=== PATIENT | female | born 1985 | race Caucasian/White ===

== ENCOUNTER → 2017-06-09 | Outpatient (CLI) | payer BC ==
[~2017-06-09] MED LIST: CLARITIN10 MG PO; MOTRIN800 MG PO; PERCOCET 5-3251 EACH PO; PRENATAL 1+1)(P1 TAB PO
== END | disposition disaster alternative care site (69) ==
LOC: GLAB 10:20
DX: Z32.01 Encounter for pregnancy test, result positive (principal)

== ENCOUNTER → 2017-06-11 | Outpatient (CLI) | payer BC | END | disposition disaster alternative care site (69) | LOC: GLAB 10:00 | DX: Z32.01 Encounter for pregnancy test, result positive (principal) ==

== ENCOUNTER → 2017-06-13 | Day surgery (SDC) | payer BC ==
[~2017-06-13] VITALS: Ht 160 cm; Wt 54.2 kg
--- NOTE | ~2017-06-13 | OR ---
PATIENT'S NAME: HAILE RODRIGUEZ [facility] AGE: 32 Y [address] ROOM: [place] [address] LOCATION: [facility] – [place] ADMIT DATE: 06/13/2017 OR/Procedure Report DISCHARGE DATE: FAMILY PHYSICIAN: PHYSICIAN, NO ATTENDING PHYSICIAN: Flores Johnson SURGEON: Flores Johnson MD SCREEN EXAMINER: DATE OF PROCEDURE: 06/13/2017 PREOPERATIVE DIAGNOSIS: Left ectopic . POSTOPERATIVE DIAGNOSIS: Ruptured left ectopic . ESTIMATED BLOOD LOSS: 25 mL. FINDINGS: Left ectopic approximately 2 cm which was ruptured midway down the fallopian tube. There was hemoperitoneum as well, approximately 100 mL. The right tube and ovary appeared normal. The left ovary appeared normal. Uterus was normal, and the rest of the intraabdominal anatomy appeared normal. INDICATIONS: The patient is a 32-year-old G2, P1-0-1-1 female. She presented to the office with vaginal bleeding and abnormally rising hCG levels. On ultrasound, there was nothing in the uterus, but adjacent to the uterus, there appeared to be a gestational sac and yolk sac. The plan was to do a salpingostomy if possible unless the tube was damaged. Yesterday, when I performed the ultrasound, there was no fluid noted in the pelvis at that time. Overnight, the patient started to have increased amount of bleeding and small amount of cramping. Prior to the procedure, the risks, benefits, and alternatives to the procedure were discussed with the patient. We discussed methotrexate yesterday, and she declined. She understood the risks to be, but not to be limited to bleeding, infection, and damage to the bowel, bladder, ureter, and surrounding organs and desired to proceed. DESCRIPTION OF PROCEDURE: The patient was taken to the operating room where anesthesia was found to be adequate. She was prepped and draped in a dorsal lithotomy position, and a time-out was performed. A weighted speculum was placed in the vagina, and the anterior lip of the cervix was grasped with a fine-toothed tenaculum. The uterine manipulator was placed, and the tenaculum was removed followed by the speculum. The surgeon's gloves were changed. Attention was turned to the patient's abdomen. A 10 mm skin incision was made after injection of Marcaine for local anesthesia. A Veress needle was introduced into the abdomen at a 45-degree angle while tenting the abdominal wall. Intraperitoneal placement was confirmed with a drop in pressure with insufflation of CO2 gas. The abdomen was insufflated. A 10 mm port and PATIENT'S NAME: HAILE RODRIGUEZ [facility] AGE: 32 Y [address] ROOM: [place] [address] LOCATION: [facility] – [place] ADMIT DATE: 06/13/2017 OR/Procedure Report DISCHARGE DATE: FAMILY PHYSICIAN: PHYSICIAN, NO ATTENDING PHYSICIAN: Flores Johnson trocar were introduced. The camera was introduced, and the above findings were noted. Two lateral 5 mm ports were placed under direct visualization after skin incision and injection with Marcaine. The right fallopian tube was followed out all the way to the fimbriated end, and it appeared normal. The left fallopian tube had an ectopic with bleeding, and the tube looked damaged. Therefore, the decision was made for removal of that tube. A grasper was used for tubal manipulation, and then cautery and ligation device was used on the left side to come across the mesosalpinx and the fallopian tube and remove the left fallopian tube. Excellent hemostasis was noted. An EndoCatch bag was introduced through the 10 mm port using a 5 mm camera and the other port, and the and tube were removed under direct visualization, ensuring that the entire EndoCatch bag was intact. Again, the abdomen was surveyed for hemostasis. The abdomen was irrigated and suctioned. Air was removed from the abdomen as best as possible, and all trocars were removed under visualization. The skin was closed with 4-0 suture, and Steri- Strips were placed. Vaginal instruments were removed. COMPLICATIONS: None. CONDITION: The patient is stable. MD PURNIMA GREEN/grant /[id number] d: 06/13/17 1841 t: 06/20/17 1054, OPERATIVE SUMMARY
[2017-06-13 08:08] LABS: BASOPHIL % 0.6 %; EOSINOPHIL # 0.2 K/uL (0.0-0.5); EOSINOPHIL % 3.2 %; HEMATOCRIT 42.6 % (33.0-46.0); HEMOGLOBIN 14.7 g/dL (11.0-15.0); LYMPHOCYTE # 2.3 K/uL (0.8-4.0); LYMPHOCYTE % 47.7 %; MCH 29.6 pg (27.0-34.0); MCHC 34.5 gm/dL (32.0-36.5); MCV 85.9 fl (83.0-98.0); MONOCYTE # 0.4 K/uL (0.0-1.0); MONOCYTE % 7.6 %; MPV 10.5 fl (9.4-12.4); NEUTROPHIL % 40.9 %; NRBC % 0 /100WBC (0-0.00); PLATELET COUNT 196 K/uL (150-450); RDW-CV 11.5 % (11.9-14.6); WBC 4.8 K/uL (4.0-11.0)
[2017-06-13 08:09] LABS: RBC 4.96 M/uL (3.50-5.50)
--- NOTE | 2017-06-13 10:15 | NUR ---
AGITATED THROAT FEELS NUMB, AND IS HAVING DIFFICULTY SWALLOWING. UNABLE TO RELAX. RX GIVEN.
--- NOTE | 2017-06-13 10:21 | NUR ---
CONTINUES TO REMAIN AGIGATED REGARDING THE FACT SHE CANNOT SWALLOW. COUGHS WHEN TRIES TO SWALLOW. REPORTS COUGHING HURTS ABD. ROLLED UP GOWN TO ABD FOR SUPPORT. rX GIVEN. ENCOURAGEMENT GIVEN.
--- NOTE | 2017-06-13 10:32 | NUR ---
REPORTS FEELING SAD RIGHT NOW
--- NOTE | 2017-06-13 10:38 | NUR ---
REPORTS SWALLOWING FEELS BETTER. ABLE TO SUCK ON ICE AND NOT COUGH. FEELS MORE RELAXED.
--- NOTE | 2017-06-13 10:48 | NUR ---
REPORT TO Stormy ROMERO RN
== END | disposition disaster alternative care site (69) ==
LOC: GPOC 06-12 18:00 → GSDC 07:40 → GPOC 18:00
PROVIDERS: Obstetrics & Gynecology
PROC: 10T24ZZ Resection of Products of Conception, Ectopic, Percutaneous Endoscopic Approach (ICD-10-PCS; principal; 2017-06-13)
PROC: 0UT64ZZ Resection of Left Fallopian Tube, Percutaneous Endoscopic Approach (ICD-10-PCS; 2017-06-13)
DX: O00.10 Tubal pregnancy without intrauterine pregnancy (principal); K08.109 Complete loss of teeth, unspecified cause, unspecified class; F41.9 Anxiety disorder, unspecified; Z88.1 Allergy status to other antibiotic agents
CPT/HCPCS: J1100; J2001; J2250; J2405; J3010; J7120